=== PATIENT | male | born 1950 | race African-American/Black ===

== ENCOUNTER 2017-01-20 09:39 | Emergency (ER) | payer MEDICAID, MEDICARE ==
[~2017-01-20] VITALS: Ht 182.9 cm; Wt 63.0 kg
[2017-01-20] MEDS ORDERED: ASPIRIN 325MG EC TABLET PO ONE (10:45)
[2017-01-20 10:56] VITALS: BP 175/127
[2017-01-20 11:04] LABS: BASOPHILS % 0.4 % (0.0-2.0); HEMATOCRIT. 48.4 % (42.0-52.0); HEMOGLOBIN. 16.5 g/dL (14.0-18.0); LYMPHOCYTES % 10.5 % (20.0-50.0); MEAN CORPUSCULAR HEMOGLOBIN 30.3 pg (28.0-32.0); MEAN CORPUSCULAR HGB CONC 34.1 g/dL (31.0-37.0); MEAN CORPUSCULAR VOLUME 88.9 fL (80.0-94.0); MEAN PLATELET VOLUME 7.4 fl (7.4-10.4); MONOCYTES % 2.4 % (2.0-8.0); NEUTROPHILS % 86.7 % (40.0-76.0); PLATELET 291 x1000/uL (130-400); RED BLOOD CELL COUNT 5.44 mill/uL (4.7-6.1); WHITE BLOOD COUNT 11.6 x1000/uL (4.5-11.0)
[2017-01-20 11:09] LABS: INR 1.1; PROTHROMBIN TIME 11.1 sec
[2017-01-20] MEDS ORDERED: MORPHINE SULFATE 4 MG/ML CPJ (NOT FOR IM USE) IV ONE (11:15)
[2017-01-20 11:19] LABS: ALANINE AMINOTRANSFERASE 132 IU/L (13-61); ALBUMIN 3.6 g/dL (3.4-5.0); ANION GAP 16; CALCIUM 9.2 mg/dL (8.5-10.1); CARBON DIOXIDE 24 mEq/L (21-32); CHLORIDE 105 mEq/L (98-107); INDEX HEMOLYSI 1 (1-3); INDEX ICTERIC 1 (1-4); INDEX LIPEMIC 1 (1-3); NT PRO B-TYPE NATRIURETIC PEP 18517 pg/mL (5-125); UREA NITROGEN BLOOD 20 mg/dL (7-21); eGFR > 60 mL/min (>60)
== END 2017-01-20 13:02 | disposition short-term general hospital (02) ==
LOC: ER 09:48
DX: I21.29 ST elevation (STEMI) myocardial infarction involving other sites (principal); R00.2 Palpitations; I10 Essential (primary) hypertension; Z87.891 Personal history of nicotine dependence; F12.90 Cannabis use, unspecified, uncomplicated; R07.9 Chest pain, unspecified; J44.9 Chronic obstructive pulmonary disease, unspecified
CPT/HCPCS: 36415; 71010; 80053; 83880; 84484; 85025; 85610; 93005; 96374; 99291; J2270; Z7610